=== PATIENT | female | born 1955 | race Caucasian/White ===

== ENCOUNTER 2020-01-20 09:32 | Outpatient (CLI) | payer MEDICARE, OTHER, SELFPAY ==
--- NOTE | 2020-01-20 09:45 | ECHO_ITS ---
Patient Info Name: Priyanka Brock Age: 64 years : 1955 Gender: Female Ht: 65 in Wt: 200 lbs BSA: 2.07 m2 HR: 93 bpm BP: 131 / 66 mmHg Heart Rhythm: Sinus Rhythm Technical Quality: Fair Exam Date: 01/20/2020 9:50 AM Exam Location: [facility] Patient Status: Outpatient Admit Date: 01/20/2020 Staff Ordering Physician: Bobby Mckenzie MD Assistant Merchandise Manager: Stephanie Hammond RDCS Attending Provider: Bobby Mckenzie MD Exam Type: CA echo doppler color flow Study Info Indications I10 - Essential (primary) hypertension Complete two-dimensional, color flow and Doppler transthoracic echocardiogram is performed. Strain analysis performed. History/Risk Factors Hypertension: Yes Dyslipidemia: Yes Congenital Heart Disease (CHD): No Peripheral Arterial Disease (PAD): No Myocardial Infarction ([place]): No Chronic Lung Disease: No Obesity: Yes Renal Disease: No Coronary Artery Disease (CAD) No Congestive Heart Failure (CHF): Hx CHF Cardiomyopathy/LV Systolic Dysfunction: No COPD: No Tobacco Use: Never Cerebrovascular Disease: TIA DVT Treatment: Warfarin Deep Vein Thrombosis (DVT): None Dialysis: None Frailty Scale (CSHA): 2: Well Cardiac Arrest: No Summary 1. Left ventricular chamber dimension is normal. 2. Left ventricular systolic function is normal, estimated at 55-60%. 3. There is mildly increased left ventricular wall thickness. 4. The left ventricular diastolic function is grade I diastolic dysfunction. 5. E/e' 9 is minimally elevated. 6. Left atrial chamber dimension is mildly enlarged. Left Ventricle E/e' 9 is minimally elevated. Left ventricular chamber dimension is normal. Left ventricular systolic function is normal, estimated at 55-60%. There is mildly increased left ventricular wall thickness. The left ventricular diastolic function is grade I diastolic dysfunction. Right Ventricle Right ventricular chamber dimension is not well visualized. Right ventricular systolic function is normal. Left Atria Left atrial chamber dimension is mildly enlarged. Right Atria Right atrial chamber dimension is normal. Aortic Valve The aortic valve is trileaflet. There is no aortic valve stenosis. There is no aortic valve regurgitation. Pulmonic Valve There is no pulmonic regurgitation. Mitral Valve There is no mitral valve stenosis. There is no mitral valve regurgitation. Tricuspid Valve There is no tricuspid valve regurgitation. Pericardium/Pleural There is no pericardial effusion. Inferior Vena Cava Normal inferior vena cava with >50% collapse upon inspiration consistent with normal right atrial pressure, 5 mmHg. Aorta The aortic root size at the sinus of Valsalva is normal. Left Ventricular Outflow Tract Name Value Normal LVOT 2D LVOT Diameter 1.2 cm LVOT Doppler LVOT Peak Velocity 131 cm/s LVOT Peak Gradient 7 mmHg LVOT Mean Gradient 3 mmHg LVOT VTI 28 cm
== END 2020-01-20 09:33 | disposition home or self-care (01) ==
PROVIDERS: PCP Internal Medicine; Visit Provider Internal Medicine
DX: I11.0 Hypertensive heart disease with heart failure (principal); I50.9 Heart failure, unspecified
CPT/HCPCS: 93306

== ENCOUNTER 2020-02-02 09:38 | Outpatient (CLI) | payer MEDICARE, OTHER, SELFPAY | END 2020-02-02 09:39 | disposition home or self-care (01) | PROVIDERS: PCP Internal Medicine; Visit Provider Internal Medicine | DX: J45.909 Unspecified asthma, uncomplicated (principal) | CPT/HCPCS: 94060; 94726; 94729; 95012 ==

== ENCOUNTER 2020-02-14 11:05 | Inpatient (IN) | payer MEDICARE, OTHER, SELFPAY ==
--- NOTE | ~2020-02-14 | US_ITS ---
EXAMINATION: US renal BI DATE: 02/15/2020 08:39 INDICATION: Elevated creatinine TECHNIQUE: Multiple ultrasound grayscale images of the kidneys were obtained. COMPARISON: None. FINDINGS: The right kidney measures 11.4 x 5.0 x 5.9 cm. The left kidney measures 9.8 x 4.7 x 4.7 cm. The kidne ys demonstrate normal echogenicity. There is no hydronephrosis in either kidney. No stones identifie d. The bladder is normal with bilateral ureteral jets on color Doppler.. IMPRESSION: 1. Normal kidneys without hydronephrosis. Reviewed, dictated and finalized at location A.
--- NOTE | ~2020-02-14 | XR_ITS ---
XR abdomen/kub 1V 02/14/2020 11:57 Indication: Constipation Procedure: KUB Comparison: No prior studies for comparison. Findings: Bowel gas pattern is nonobstructive. Moderate colonic fecal loading. Moderate lumbar spondy losis with levoscoliosis. Moderate colonic fecal loading. No definite urolithiasis. Impression: 1: Nonobstructive bowel gas pattern. Reviewed, dictated and finalized at location A. Impression: 1: Nonobstructive bowel gas pattern.
--- NOTE | 2020-02-14 11:36 | ED.NAVMDI ---
HPI - Nausea/Vomiting/Diarrhea General Chief complaint: Nausea/Vomiting/Diarrhea Stated complaint: Dehydrated doc sent over Time Seen by Provider: 02/14/20 11:30 Source: patient and RN notes reviewed Mode of arrival: ambulatory Limitations: no limitations History of Present Illness MD elicited complaint: vomiting Onset (ago): week(s) (2.5) Description of vomiting: bilious Associated nausea: Yes Associated abdominal pain: Yes Location of pain: diffuse Pain consistency: intermittent Severity: moderate Quality: cramping Exacerbating factors: eating Relieving factors: none Associated symptoms: denies other symptoms Related Data Home Medications Medication Instructions Recorded Confirmed albuterol sulfate [Ventolin HFA] 1 - 2 puff INHALATION QID PRN 02/14/20 02/14/20 atorvastatin 20 mg PO DAILY 02/14/20 02/14/20 clopidogrel 75 mg PO DAILY 02/14/20 02/14/20 montelukast 10 mg PO DAILY 02/14/20 02/14/20 oxycodone-acetaminophen 1 tablet PO QID 02/14/20 02/14/20 pantoprazole 40 mg PO DAILY 02/14/20 02/14/20 tizanidine 4 mg PO DAILY 02/14/20 02/14/20 torsemide 20 mg PO DAILY 02/14/20 02/14/20 valsartan-hydrochlorothiazide 1 tablet PO DAILY 02/14/20 02/14/20 Allergies Allergy/AdvReac Type Severity Reaction Status Date / Time No Known Allergies Allergy Verified 02/14/20 11:41 Review of Systems Constitutional: Constitutional: Reports chills and Denies fever(s) Eyes: Eyes: Reports no additional eye complaints ENT: Reports system reviewed and no additional complaints, except as documented Cardiovascular: Cardiovascular: Reports no additional cardiovascular complaints Respiratory: Respiratory: Reports no additional respiratory complaints Gastrointestinal: Gastrointestinal: Reports as per HPI and Reports constipation Musculoskeletal: Musculoskeletal: Reports no additional musculoskeletal complaints Integumentary/Breasts: Skin/Breast: Reports system reviewed and no additional complaints, except as docu Psychiatric: Psychiatric: Reports no additional psychiatric complaints Endocrine: Endocrine: Reports no additional endocrine complaints Hematologic/Lymphatic: Hematologic/Lymphatic: Reports no additional hematologic/lymphatic complaints Allergic/Immunologic: Allergic/Immunologic: Reports no additional allergic/immunologic complaints PMFSH Past Medical History Medical History (Updated 02/14/20 @ 12:52 by Domingo Kumar MD) Chronic back pain Chronic constipation Depression with anxiety Hyperlipidemia Hypertension Microscopic hematuria TIA (transient ischemic attack) Surgical History Surgical History (Updated 02/14/20 @ 12:52 by Domingo Kumar MD) History of hysterectomy for benign disease Social History Social History (Updated 02/14/20 @ 12:53 by Domingo Kumar MD) Smoking status: Never smoker Alcohol intake: current Substance use: never Living arrangements: with family Exam Const: General: healthy appearing and no acute distress Nutritional Appearance: well nourished and obese morbidly obese Orientation/consciousness: patient oriented x3 HENMT: Head: normal to inspection Face and sinus: normal facial exam Eyes: Cornea: corneas normal Pupils: Equal, round and reactive pupils present EOM: EOMs intact bilaterally Neck: Neck: normal visual inspection and no lymphadenopathy Resp: Effort & Inspection: normal respiratory effort Auscultation: clear to auscultation bilaterally Cardio: Rate: regular rate Rhythm: regular rhythm GI: Inspection: obesity GI Palp: Yes Soft to palpation, No Hepatomegaly present and No Splenomegaly present Auscultation: normal bowel sounds Back/Spine/Pelvis: Back: no CVA tenderness Cervical Spine: cervical ROM normal Thoracic/Lumbar Spine: thoraco-lumbar ROM normal Skin: General skin exam: normal color Neuro: General: patient oriented x3, moves all extremities, no meningeal signs and no focal motor deficits Speech: normal speech Gait exam (Neuro):
[2020-02-14 11:44] VITALS: BP 111/57; PULSE 73; RESP 73; TEMP 36.7; O2SAT 95
[2020-02-14 11:53] LABS: Add Urine Microscopic? NO; Appearance Urine Clear (Clear); Bilirubin Urine Negative (Negative); Blood Urine Negative (Negative); Color Urine Yellow (Yellow); Glucose Urine UA Negative (Negative); Ketones Urine Negative (Negative); Leukocyte Esterase Ur Negative LEU/UL (Negative); Nitrate Urine Negative (Negative); Protein Urine Negative (Negative); Urobilinogen Urine 0.2 mg/dL (0.2-1.0)
[2020-02-14 11:56] LABS: Basophils Absolute Auto 0.03 K/mm3 (0.00-0.10); Basophils Percent Auto 0.2 % (0.0-1.0); Eosinophils Absolute Auto 0.03 K/mm3 (0.02-0.50); Eosinophils Percent Auto 0.2 % (1.0-6.0); Hematocrit 41.6 % (35.0-49.0); Hemoglobin 14.9 g/dL (12.0-15.0); Immature Granulocyte Absolute 0.07 K/mm3 (0.00-0.00); Immature Granulocyte Percent A 0.5 % (0.0-0.0); Lymphocytes Absolute Auto 1.62 K/mm3 (1.10-4.50); Lymphocytes Percent Auto 11.5 % (18.0-42.0); Mean Corpuscular HGB Conc 35.8 g/dL (32.0-36.0); Mean Corpuscular Hemoglobin 30.7 pg (27.0-31.0); Mean Corpuscular Volume 85.8 fL (78.0-102.0); Mean Platelet Volume 8.8 fl (9.2-11.8); Monocytes Absolute Auto 1.35 K/mm3 (0.10-0.90); Monocytes Percent Auto 9.6 % (2.0-11.0); Neutrophils Absolute Auto 10.9 K/mm3 (1.7-7.2); Platelet Count Result 387 K/mm3 (150-420); Red Blood Count 4.85 M/mm3 (4.20-5.40); Red Cell Distribution Width 11.9 % (11.6-14.4)
[2020-02-14 12:11] LABS: Alanine Aminotransferase 29 U/L (14-59); Albumin Level 4.3 g/dL (3.4-5.0); Alkaline Phosphatase 110 U/L (46-116); Amylase 134 U/L (25-115); Anion Gap 14.5 mmol/L (7-16); Aspartate Amino Transferase 40 U/L (15-37); Bilirubin,Total 0.8 mg/dL (0.00-1.00); Blood Urea Nitrogen 80 mg/dL (7-18); Calcium 10.5 mg/dL (8.5-10.1); Carbon Dioxide 35 mmol/L (21-32); Chloride 79 mmol/L (98-108); Estimated Glomerular Filt Rate 11; Glucose 133 mg/dL (70-99); Lipase 381 U/L (73-393); Osmolality Calculated 288 mOsm/kg (285-295); Sodium 126 mmol/L (136-145); Total Protein 9.3 g/dL (6.4-8.2)
[2020-02-14 12:15] LABS: Potassium 2.5 mmol/L (3.5-5.1)
[2020-02-14] MEDS: SODIUM CHLORIDE 0.9% IV 1,000 ML 999 ML (12:21)
[2020-02-14] MEDS: POTASSIUM BICARBONATE 25 MEQ TABEF 50 MEQ PO ×2 (12:31→20:31)
[2020-02-14] MEDS: ONDANSETRON INJ 4 MG/2 ML VIAL IV PUSH ×2 (12:48→13:40)
[2020-02-14] MEDS: KCL 20 MEQ/SW 100 ML 100 ML 50 MEQ IVPB (12:48)
[2020-02-14] MEDS: SODIUM CHLORIDE 0.9% IV 1,000 ML 999 ML IV CONT (12:56)
[2020-02-14 13:03] VITALS: PULSE 78; RESP 16; O2SAT 95
--- NOTE | 2020-02-14 13:11 | ECG_ITS ---
Measurements Intervals [place] Rate: 67 P: 97 UT: 206 QRS: 61 QRSD: 109 T: 48 QT: 428 QTc: 453 Interpretive Statements SINUS RHYTHM WITH FIRST DEGREE AV BLOCK FREQUENT ATRIAL PREMATURE COMPLEXES BORDERLINE ST-T WAVE ABNORMALITY- ANTEROLATERAL LEADS ABNORMAL ECG Electronically Signed On 02-14-2020 14:06:16 CDT by Jeff Maya D.O.
[2020-02-14 13:19] VITALS: BP 140/67; PULSE 65; RESP 18; TEMP 36.6; O2SAT 96
[2020-02-14] MEDS: SODIUM CHLORIDE 0.9% IV 1,000 ML 100 ML IV CONT (13:40)
[2020-02-14 13:49] VITALS: BP 140/67; PULSE 64; RESP 20; TEMP 36.7; O2SAT 96; BMI 34.2
--- NOTE | 2020-02-14 14:09 | PC.NURSE ---
attempted to give pt fleets enema as ordered, pt refusing at this time. stated that i am not up for it right now will attempt again later.
--- NOTE | 2020-02-14 14:20 | PM.IMHP ---
H&P: HPI History of Present Illness Chief complaint: Dehydrated <FILOMENA Cyr - Last Filed: 02/14/20 15:01> Narrative: Priyanka Brock is a 64 year old female THAT PRESENTED TO THE ED WITH COMPLAINTS OF NAUSEA VOMITING. PATIENT HAS A PAST MEDICAL HISTORY CHRONIC BACK PAIN, CHRONIC CONSTIPATION, DEPRESSION AND ANXIETY, HYPERLIPIDEMIA, HYPERTENSION, MICROSCOPIC HEMATURIA AND TIA. ACCORDING TO PATIENT FOR THE LAST MONTH SHE HAVE EXPERIENCED EXCESSIVE HEARTBURN SHE HAS UNCONTROLLED BURPING AND HAS HEARTBURN WHETHER SHE IS SITTING OR LYING. SHE NOTED THAT LAST FRIDAY SHE VOMITED 6 TIMES. SHE DID INFORM HER PRIMARY CARE PHYSICIAN OF HER SEVERE HEARTBURN AND HE CHANGED HER OMEPRAZOLE TO PANTOPRAZOLE AND DOUBLED THE DOSE. SHE ALSO NOTED THAT APPROXIMATELY 1 MONTH AGO SHE HAD A SEVERE FALL BACKWARDS DOWN 5 FLIGHTS OF STAIRS. SHE DID GO TO DR. MOREL OFFICE AFTERWARDS AND IMAGING WAS COMPLETED NO FRACTURES NOTED. PATIENT ALSO NOTED THAT SHE HAS NOT HAD A BOWEL MOVEMENT FOR 2 WEEKS AND IS VERY FATIGUED SHE INFORMED ME THAT ON FRIDAY SHE VOMITED APPROXIMATELY 15 TIMES IN THE CONTENT WAS YELLOWISH IN COLOR. WHILE IN THE ER PATIENT'S POTASSIUM WAS 2.5 SHE RECEIVED A POTASSIUM 70 MEQ TOTAL. HER SODIUM LEVEL WAS ALSO LOW AT 126 HER WHITE COUNT WAS 14.0 HER CREATININE WAS 4.08 IN HER AMYLASE LEVEL WAS ELEVATED HER CRP WAS ALSO ELEVATED. PATIENT'S VITAL SIGNS 115/57,78, 16, 98.1,95% AIR. WHILE PATIENT WAS IN THE ER SHE RECEIVED SUPPLEMENT POTASSIUM AND 1 L BOLUS OF FLUIDS. HER EKG INDICATED SINUS RHYTHM WITH FREQUENT SUPRAVENTRICULAR PREMATURE COMPLEX. CK, TROPONIN AND RENAL ULTRASOUND AND ARE CURRENTLY PENDING. PATIENT IS BEING ADMITTED FOR DEHYDRATION, HYPOKALEMIA AND ACUTE KIDNEY INJURY . PATIENT DENIES SOB, CP, PALPITATION, EXTREMITY NUMBNESS, LIGHTHEADNESS, DIZZINESS, , DIARRHEA, CHILLS OR FEVER. <FILOMENA Cyr - Last Filed: 02/14/20 15:01> Review of Systems Constitutional: Constitutional: Reports fatigue, Denies fever(s), Reports lethargy, Reports poor appetite and Reports weakness <FILOMENA Cyr - Last Filed: 02/14/20 15:01> Cardiovascular: Cardiovascular: Reports no additional cardiovascular complaints, Denies chest pain and Denies dyspnea <FILOMENA Cyr - Last Filed: 02/14/20 15:01> Respiratory: Respiratory: Reports no additional respiratory complaints, Denies chest congestion, Denies dyspnea and Denies dyspnea on exertion <[facility] - Last Filed: 02/14/20 15:01> Gastrointestinal: Gastrointestinal: Denies abdominal pain, Reports belching, Denies melena, Denies hematochezia, Denies coffee ground emesis, Reports heartburn, Reports nausea, Reports vomiting and Denies hematemesis <Orlando Lemos [facility] Last Filed: 02/14/20 15:01> Genitourinary: Genitourinary: Reports no additional female genitourinary complaints, Denies flank pain, Denies urinary incontinence, Denies urinary hesitancy and Denies urinary urgency <[facility] Last Filed: 02/14/20 15:01> Musculoskeletal: Musculoskeletal: Reports back pain ( CHRONIC) <Orlando Lemos [facility] [employer] Last Filed: 02/14/20 15:01> Integumentary/Breasts: Skin/Breast: Reports system reviewed and no additional complaints, except as docu <[facility] Last Filed: 02/14/20 15:01> Neurologic: Reports system reviewed and no additional complaints, except as documented, Denies Neuro-related abnormal movements, Denies Abnormal speech present, Denies abnormal gait, Denies vertigo, Denies dizziness, Denies syncope, Denies frequent falls, Denies headache(s), Denies numbness and Denies seizure-like activity <[facility] Last Filed: 02/14/20 15:01> Psychiatric: Psychiatric: Reports no additional psychiatric complaints, Denies anxiety and Denies confusion <[facility] [employer] Last Filed: 02/14/20 15:01> Endocrine: Endocrine: Reports fatigue and Denies polyuria <[facility] [employer] Last Filed: 0
[2020-02-14 14:54] LABS: Troponin I < 0.02 ng/mL (0.00-0.056)
[2020-02-14 14:55] LABS: Creatine Kinase 396 U/L (26-192); Potassium 2.9 mmol/L (3.5-5.1)
[2020-02-14 16:00] VITALS: BP 107/64; PULSE 74; RESP 18; TEMP 36.3; O2SAT 92
--- NOTE | 2020-02-14 16:18 | PC.NURSE ---
Patient awake and pleasant. C/O lower back pain that runs along sciatic nerve in LLE. Assisted to bathroom. Ambulated with steady gait. Patient resting in bed, watching TV, with call light and belongings within reach.
[2020-02-14] MEDS: ENOXAPARIN 30 MG/0.3 ML SYRINGE SUB-Q (16:46)
[2020-02-14 20:00] VITALS: BP 111/53; PULSE 68; RESP 18; TEMP 36.6; O2SAT 95
[2020-02-14 20:10] LABS: Potassium 2.1 mmol/L (3.5-5.1)
[2020-02-14] MEDS: TRAZODONE HCL 50 MG TABLET PO ×2 (20:30→20:32)
[2020-02-14] MEDS: SENNA/DOCUSATE SODIUM TABLET 1 TAB PO (20:37)
[2020-02-15] VITALS: BP 126/60; PULSE 70; RESP 18; TEMP 36.4; O2SAT 95
[2020-02-15] MEDS: SODIUM CHLORIDE 0.9% IV 1,000 ML 100 ML IV CONT (00:03)
[2020-02-15 03:59] VITALS: BP 127/63; PULSE 70; RESP 18; TEMP 36.3; O2SAT 95
[2020-02-15 05:23] LABS: Hematocrit 36.9 % (35.0-49.0); Mean Corpuscular HGB Conc 35.2 g/dL (32.0-36.0); Mean Corpuscular Hemoglobin 30.9 pg (27.0-31.0); Mean Corpuscular Volume 87.6 fL (78.0-102.0); Platelet Count Result 308 K/mm3 (150-420); Red Blood Count 4.21 M/mm3 (4.20-5.40); Red Cell Distribution Width 12.1 % (11.6-14.4)
[2020-02-15 05:39] LABS: Alanine Aminotransferase 24 U/L (14-59); Albumin Level 3.4 g/dL (3.4-5.0); Alkaline Phosphatase 85 U/L (46-116); Anion Gap 8.3 mmol/L (7-16); Aspartate Amino Transferase 32 U/L (15-37); Bilirubin,Total 0.6 mg/dL (0.00-1.00); Blood Urea Nitrogen 62 mg/dL (7-18); Calcium 9.2 mg/dL (8.5-10.1); Carbon Dioxide 37 mmol/L (21-32); Chloride 92 mmol/L (98-108); Creatine Kinase 281 U/L (26-192); Estimated CRCL calculation 25 ml/min; Estimated Glomerular Filt Rate 21; Glucose 102 mg/dL (70-99); Osmolality Calculated 295 mOsm/kg (285-295); Potassium 3.3 mmol/L (3.5-5.1); Sodium 134 mmol/L (136-145); Total Protein 7.5 g/dL (6.4-8.2)
[2020-02-15] MEDS: PANTOPRAZOLE 40 MG TABLET PO (05:53)
[2020-02-15 07:42] VITALS: BP 93/54; PULSE 65; RESP 18; TEMP 36.9; O2SAT 95
--- NOTE | 2020-02-15 07:49 | PC.NURSE ---
AM creatinine 2.34, fluids infusing, no n/v, voiding without difficulty
[2020-02-15] MEDS: MAGNESIUM CITRATE 300 ML BTL 150 ML PO (09:21)
[2020-02-15] MEDS: POTASSIUM CHLORIDE 20 MEQ PACKET (FOR LIQUID) 40 MEQ PO (09:22)
[2020-02-15] MEDS: FLUTICASONE PROPIONATE 0.05% NA SPR 16 GM BTL (*BKC) 2 SPRAY NASAL (09:23)
[2020-02-15] MEDS: VALSARTAN 80 MG TABLET 320 MG PO (09:24)
[2020-02-15] MEDS: ASCORBIC ACID 500 MG TABLET PO (09:26)
[2020-02-15] MEDS: TIZANIDINE HCL 2 MG TABLET 4 MG PO (09:26)
[2020-02-15] MEDS: DOCUSATE SODIUM 100 MG CAPSULE PO (09:26)
[2020-02-15] MEDS: METOPROLOL SUCCINATE EXT REL 50 MG TABCR PO (09:27)
[2020-02-15] MEDS: MONTELUKAST SODIUM 10 MG TABLET PO (09:27)
[2020-02-15] MEDS: hydroCHLOROthiazide 12.5 MG CAPSULE PO (09:28)
[2020-02-15] MEDS: TORSEMIDE 20 MG TABLET PO (09:28)
[2020-02-15] MEDS: MULTIVITAMINS THERAPEUTIC TAB (*BKC) 1 TABLET PO (09:30)
[2020-02-15] MEDS: CLOPIDOGREL BISULFATE 75 MG TABLET PO (09:30)
--- NOTE | 2020-02-15 09:46 | PC.NURSE ---
voiding well, no BM at this time
[2020-02-15 11:37] VITALS: BP 115/67; PULSE 75; RESP 18; TEMP 36.6; O2SAT 95
--- NOTE | 2020-02-15 12:51 | P.PNIM_ITS ---
Progress Note: A&P Assessment and Plan (1) Chronic back pain: Code(s): M54.9 - Dorsalgia, unspecified; G89.29 - Other chronic pain <Jasperkarlie LalitaFILOMENA Coleman - Last Filed: 02/15/20 12:58> Status: Acute <Orlando LemosFILOMENA - Last Filed: 02/15/20 12:58> Assessment and Plan: * PATIENT WITH CHRONIC BACK PAIN, FOLLOWED BY PAIN MANAGEMENT * FOR NOW WE WILL CONTINUE PERCOCET * WILL ADJUST MEDICATION NEEDED <Jasperkarlie LalitaFILOMENA Coleman - Last Filed: 02/15/20 12:58> (2) Depression with anxiety: Code(s): F41.8 - Other specified anxiety disorders <Orlando LalitaFILOMENA Coleman - Last Filed: 02/15/20 12:58> Status: Acute <Jasperkarlie LalitaFILOMENA Coleman - Last Filed: 02/15/20 12:58> Assessment and Plan: * CONTINUE CYMBALTA <Jasperkarlie LalitaFILOMENA Coleman - Last Filed: 02/15/20 12:58> (3) Chronic constipation: Code(s): K59.09 - Other constipation <Orlando LalitaFILOMENA Coleman - Last Filed: 02/15/20 12:58> Status: Acute <Jsaperkarlie LalitaIFLOMENA Coleman - Last Filed: 02/15/20 12:58> Assessment and Plan: * POSSIBLY SECONDARY TO CHRONIC NARCOTIC USE * IMAGING INDICATED Bowel gas pattern is nonobstructive. Moderate colonic fecal loading. * patient refused FLEET ENEMA but has P.R.N. SUPPOSITORIES AND SCHEDULED STOOL SOFTENERS WITH LAXATIVES THROUGHOUT THE DAY. she also received Mag citrate today * HER LINZESS IS CURRENTLY ON HOLD <FILOMENA Cyr - Last Filed: 02/15/20 12:58> (4) Hyperlipidemia: Code(s): E78.5 - Hyperlipidemia, unspecified <Orlando LalitaFILOMENA Coleman - Last Filed: 02/15/20 12:58> Status: Acute <FILOMENA Cyr - Last Filed: 02/15/20 12:58> Assessment and Plan: * CONTINUE STATINS <Orlando Lemos SOCIAL WELFARE ADMINISTRATORNadege - Last Filed: 02/15/20 12:58> (5) Hypertension: Code(s): I10 - Essential (primary) hypertension <Orlando Lemos SOCIAL WELFARE ADMINISTRATORArlodoNate - Last Filed: 02/15/20 12:58> Status: Acute <Orlando Lemos BESSYNate - Last Filed: 02/15/20 12:58> Assessment and Plan: * SOFT DUE TO DEHYDRATION, slight improvement * PATIENT WILL CONTINUE VALSARTAN AND METOPROLOL TOMORROW MORNING IF BLOOD PRESSURE HAS IMPROVED * VITAL SIGNS IS ORDERED * ORTHOSTATICS BLOOD PRESSURES review * WILL ADJUST MEDICATION NEEDED * PATIENT'S DIURETICS ON HOLD DUE TO DEHYDRATION * <Orlando LemosNIMAAroldoNate - Last Filed: 02/15/20 12:58> (6) Dehydration: Code(s): E86.0 - Dehydration <Orlando LemosNIMAAroldoNate - Last Filed: 02/15/20 12:58> Status: Acute <Orlando Lemos SOCIAL WELFARE ADMINISTRATORNadege - Last Filed: 02/15/20 12:58> Assessment and Plan: * SECONDARY TO NAUSEA/ VOMITING * EVIDENCE OF AND BALANCE ELECTROLYTES, FATIGUE. patient electrolytes improving * CONTINUE IV FLUIDS * REPEAT CMP IN A.M. <Orlando LemosNIMAAroldoNate - Last Filed: 02/15/20 12:58> (7) Acute hyponatremia: Code(s): E87.1 - Hypo-osmolality and hyponatremia <Orlando LemosFILOMENA - Last Filed: 02/15/20 12:58> Status: Acute <Orlando Lemos FILOMENA - Last Filed: 02/15/20 12:58> Assessment and Plan: * SECONDARY TO DEHYDRATION * CONTINUE TO HYDRATE PATIENT VIA IV * REPEAT BMP IN A.M. <Orlando LemosNIMAAroldoNate - Last Filed: 02/15/20 12:58> (8) Hypokalemia: Code(s): E87.6 - Hypokalemia <Orlando LemosFILOMENA - Last Filed: 02/15/20 12:58> Status: Acute <Orlando Lemos, SOCIAL WELFARE ADMINISTRATOR-C - Last Filed: 02/15/20 12:58> Assessment and Plan: * POSSIBLY SECONDARY TO ACUTE KIDNEY INJURY SARINA
--- NOTE | 2020-02-15 12:51 | PM.IMPN ---
Progress Note: A&P Assessment and Plan (1) Chronic back pain: Code(s): M54.9 - Dorsalgia, unspecified; G89.29 - Other chronic pain <FILOMENA Cyr - Last Filed: 02/15/20 12:58> Status: Acute <Orlando LalitaFILOMENA Coleman - Last Filed: 02/15/20 12:58> Assessment and Plan: PATIENT WITH CHRONIC BACK PAIN, FOLLOWED BY PAIN MANAGEMENT FOR NOW WE WILL CONTINUE PERCOCET WILL ADJUST MEDICATION NEEDED <FILOMENA Cyr - Last Filed: 02/15/20 12:58> (2) Depression with anxiety: Code(s): F41.8 - Other specified anxiety disorders <FILOMENA Cyr - Last Filed: 02/15/20 12:58> Status: Acute <FILOMENA Cyr - Last Filed: 02/15/20 12:58> Assessment and Plan: CONTINUE CYMBALTA <FILOMENA Cyr - Last Filed: 02/15/20 12:58> (3) Chronic constipation: Code(s): K59.09 - Other constipation <FILOMENA Cyr - Last Filed: 02/15/20 12:58> Status: Acute <FILOMENA Cyr - Last Filed: 02/15/20 12:58> Assessment and Plan: POSSIBLY SECONDARY TO CHRONIC NARCOTIC USE IMAGING INDICATED Bowel gas pattern is nonobstructive. Moderate colonic fecal loading. patient refused FLEET ENEMA but has P.R.N. SUPPOSITORIES AND SCHEDULED STOOL SOFTENERS WITH LAXATIVES THROUGHOUT THE DAY. she also received Mag citrate today HER LINZESS IS CURRENTLY ON HOLD <FILOMENA Cyr - Last Filed: 02/15/20 12:58> (4) Hyperlipidemia: Code(s): E78.5 - Hyperlipidemia, unspecified <FILOMENA Cyr - Last Filed: 02/15/20 12:58> Status: Acute <FILOMENA Cyr - Last Filed: 02/15/20 12:58> Assessment and Plan: CONTINUE STATINS <FILOMENA Cyr - Last Filed: 02/15/20 12:58> (5) Hypertension: Code(s): I10 - Essential (primary) hypertension <Orlando Lemos FILOMENA - Last Filed: 02/15/20 12:58> Status: Acute <Orlando Lemos FILOMENA - Last Filed: 02/15/20 12:58> Assessment and Plan: SOFT DUE TO DEHYDRATION, slight improvement PATIENT WILL CONTINUE VALSARTAN AND METOPROLOL TOMORROW MORNING IF BLOOD PRESSURE HAS IMPROVED VITAL SIGNS IS ORDERED ORTHOSTATICS BLOOD PRESSURES review WILL ADJUST MEDICATION NEEDED PATIENT'S DIURETICS ON HOLD DUE TO DEHYDRATION <Orlando Lemos HORTICULTURAL SPECIALTY GROWER FIELDAroldoNate - Last Filed: 02/15/20 12:58> (6) Dehydration: Code(s): E86.0 - Dehydration <Orlando Lemos BESSYNate - Last Filed: 02/15/20 12:58> Status: Acute <Orlando Lemos FILOMENA - Last Filed: 02/15/20 12:58> Assessment and Plan: SECONDARY TO NAUSEA/ VOMITING EVIDENCE OF AND BALANCE ELECTROLYTES, FATIGUE. patient electrolytes improving CONTINUE IV FLUIDS REPEAT CMP IN A.M. <Orlando Lemos BESSYNate - Last Filed: 02/15/20 12:58> (7) Acute hyponatremia: Code(s): E87.1 - Hypo-osmolality and hyponatremia <Orlando Lemos FILOMENA - Last Filed: 02/15/20 12:58> Status: Acute <Orlando Lemos FILOMENA - Last Filed: 02/15/20 12:58> Assessment and Plan: SECONDARY TO DEHYDRATION CONTINUE TO HYDRATE PATIENT VIA IV REPEAT BMP IN A.M. <Orlando Lemos FILOMENA - Last Filed: 02/15/20 12:58> (8) Hypokalemia: Code(s): E87.6 - Hypokalemia <Orlando Lemos BESSYNate - Last Filed: 02/15/20 12:58> Status: Acute <Orlando Lemos [employer]ICULT[employer] SPECIALTY GR[employer] FIELDAroldoNate - Last Filed: 02/15/20 12:58> Assessment and Plan: POSSIBLY SECONDARY TO ACUTE KIDNEY INJURY VERSUS USE OF DIURETICS PATIENT'S POTASSIUM LEVEL AT 2.5 on admission currently 3.3 continue supplements EKG INDICATES SINUS RHYTHM WITH FREQUENT SUPRAVENTRICULAR PREMATURE COMPLEX TROPONINS negative <FILOMENA Cyr - Last Filed: 02/15/20 12:58> (9) Acute kidney injury: Code(s): N17.9 - Acute kidney failure, unspecified <Kirsten Cyr
--- NOTE | 2020-02-15 13:16 | PC.NURSE ---
Up in [place] walking, no BM at this time, did get all of magnesium citrate down this am
--- NOTE | 2020-02-15 14:49 | PC.NURSE ---
Voiding well, still no BM
--- NOTE | 2020-02-15 15:45 | PHAR ---
02/14/20 - SPOKE W/[facility]. SAID PT TAKES OXYCONE/APAP-10/325MG 1 TAB PO Q4-6H PRN, MAX 5.5 TABS/DAY, JUST FILLED 02/06/20. INFORMED SERAFIN MURPHY AND DR. MAYBERRY. TLS
[2020-02-15 16:00] VITALS: BP 134/47; PULSE 82; PULSE 93; RESP 16; TEMP 37.3; O2SAT 92
[2020-02-15] MEDS: ENOXAPARIN 30 MG/0.3 ML SYRINGE SUB-Q (16:52)
--- NOTE | 2020-02-15 17:10 | PM.EVENT ---
Event Note Event Note Event Note: For this patient encounter, I reviewed with Orlando Lemos the documentation, treatment plan, and medical decision making; and I had [id number]-shkn time with this patient. Dehydration and hypokalemia secondary to vomiting. GI symptoms resolved, kidney function and K improving.
[2020-02-15 20:00] VITALS: BP 129/64; PULSE 67; PULSE 70; RESP 18; TEMP 36.9; O2SAT 97
[2020-02-15] MEDS: SENNA/DOCUSATE SODIUM TABLET 1 TAB PO (21:18)
[2020-02-15] MEDS: TRAZODONE HCL 50 MG TABLET PO (21:21)
[2020-02-16] VITALS (11 sets, daily range): BP systolic 104–157; BP diastolic 54–86; PULSE 66–93; RESP 16–22; TEMP 36.4–37; O2SAT 93–100
--- NOTE | 2020-02-16 05:06 | PC.NURSE ---
Echocardiograph Technician observed patient heart rate going in the 140s on telemetry, scientific writer in to check on the patient and found her sitting on the side of the bed. She stated that she was woke up by a feeling of burning in her mid chest up into her throat, she describes it as feeling like acid reflux. She is also stating that she feels nauseous at this time. Vital signs were obtained and charge nurse notified.
[2020-02-16] MEDS: ONDANSETRON INJ 4 MG/2 ML VIAL IV PUSH ×2 (05:15→21:55)
[2020-02-16] MEDS: MAG HYDROX/AL HYDROX/SIMETH 30 ML UDC PO (05:16)
[2020-02-16] MEDS: PANTOPRAZOLE 40 MG TABLET PO ×2 (05:16→21:52)
--- NOTE | 2020-02-16 05:29 | ECG_ITS ---
Measurements Intervals [place] Rate: 81 P: -1 WA: 157 QRS: 32 QRSD: 104 T: -5 QT: 387 QTc: 450 Interpretive Statements SINUS RHYTHM DELAYED PRECORDIAL R/S TRANSITION INFERIOR INFARCT, AGE INDETERMINATE BASELINE WANDER- V4 ABNORMAL ECG Electronically Signed On 02-16-2020 6:59:05 CDT by Jeff Maya D.O.
--- NOTE | 2020-02-16 05:31 | PC.NURSE ---
Per charge nurse, bond underwriter called Dr. Caldwell to discuss the patients condition. Dr. Caldwell informed of patient vitals signs and that she received PRN medication and that she states that the medication did decrease the burning sensation. Dr. caldwell stated that he would put orders in for labs and EKG.
--- NOTE | 2020-02-16 05:40 | PC.NURSE ---
Unable to obtain accurate I and O due to patient removing hats from toilet. Dr. Duenas up to see the patient.
--- NOTE | 2020-02-16 05:55 | PM.EVENT ---
Event Note Event Note Event Note: Pt awoke around 5 AM with substernal burning, acid taste in her mouth and nausea. Shortly thereafter she felt her heart racing for about a minute followed by having her previosly mild frontal headache begin to pound and be associated with photophobia. Since her severe GERD symptoms started about a month ago everytime she has bouts of GERD, nausea and vomiting she will experience similar brief episodes of palpitations. Her blood pressure has been followed by a director geothermal operations for years. She has no hx of previous palpitations. No hx of CAD. o) Telemetry strip taken at the same time pt was experiencing palpitations revealed a regular, narrow complex tachycardia ~ 160. Nurse states it lasted about a minute. Window shades are up; pt. is squinting. Appears to be uncomfortable. PERRL. Lung sounds are full and clear. Cor: RR and R, no g/m. Rate: 81 Rhythm: NSR QRS duration:104 SC interval: 157 QTc: 424 [place]: 32 ST/T changes: none Q waves II, AVF and III with taller R waves in V1 and V2 not seen on comparison 02/13. A/ Brief episode of PSVT assoc. with new onset of GERD symptoms, similar scenarios over the past month. New Q waves inferior leads c/w inferior M.I. P/ Await troponin. Continue telemetry. Consult pt's director geothermal operations. Consider echo.
[2020-02-16 06:13] LABS: Anion Gap 6.8 mmol/L (7-16); Blood Urea Nitrogen 38 mg/dL (7-18); Carbon Dioxide 37 mmol/L (21-32); Chloride 91 mmol/L (98-108); Estimated CRCL calculation 42 ml/min; Estimated Glomerular Filt Rate 38; Glucose 111 mg/dL (70-99); Magnesium 1.9 mg/dL (1.8-2.4); Osmolality Calculated 284 mOsm/kg (285-295); Potassium 2.8 mmol/L (3.5-5.1); Sodium 132 mmol/L (136-145); Troponin I < 0.02 ng/mL (0.00-0.056)
[2020-02-16] MEDS: ASPIRIN 81 MG CHEWABLE TABLET 324 MG PO (06:25)
[2020-02-16] MEDS: METOCLOPRAMIDE HCL INJ 10 MG/2 ML VIAL IV PUSH (06:26)
--- NOTE | 2020-02-16 06:29 | PC.NURSE ---
2117 Dr. Duenas here to see patient.
[2020-02-16] MEDS: POTASSIUM CHLORIDE 20 MEQ PACKET (FOR LIQUID) 40 MEQ PO (09:00)
[2020-02-16] MEDS: KCL 20 MEQ/SW 100 ML 100 ML 50 MEQ IVPB (09:09)
[2020-02-16] MEDS: SODIUM CHLORIDE 0.9% IV 500 ML 250 ML IV CONT (09:09)
[2020-02-16] MEDS: FLUTICASONE PROPIONATE 0.05% NA SPR 16 GM BTL (*BKC) 2 SPRAY NASAL (09:10)
[2020-02-16] MEDS: VALSARTAN 80 MG TABLET 320 MG PO (09:11)
[2020-02-16] MEDS: DOCUSATE SODIUM 100 MG CAPSULE PO (09:12)
[2020-02-16] MEDS: MULTIVITAMINS THERAPEUTIC TAB (*BKC) 1 TABLET PO (09:12)
[2020-02-16] MEDS: MONTELUKAST SODIUM 10 MG TABLET PO (09:12)
[2020-02-16] MEDS: ATORVASTATIN 10 MG TABLET 20 MG PO (09:13)
[2020-02-16] MEDS: ASCORBIC ACID 500 MG TABLET PO (09:13)
[2020-02-16] MEDS: METOPROLOL SUCCINATE EXT REL 50 MG TABCR PO (09:14)
[2020-02-16] MEDS: TORSEMIDE 20 MG TABLET PO (09:14)
[2020-02-16] MEDS: TIZANIDINE HCL 2 MG TABLET 4 MG PO (09:15)
[2020-02-16] MEDS: hydroCHLOROthiazide 12.5 MG CAPSULE PO (09:16)
[2020-02-16] MEDS: CLOPIDOGREL BISULFATE 75 MG TABLET PO (09:16)
--- NOTE | 2020-02-16 14:30 | P.PNIM_ITS ---
Progress Note: A&P Assessment and Plan (1) Chronic back pain: Code(s): M54.9 - Dorsalgia, unspecified; G89.29 - Other chronic pain Status: Acute Assessment and Plan: * PATIENT WITH CHRONIC BACK PAIN, FOLLOWED BY PAIN MANAGEMENT * FOR NOW WE WILL CONTINUE PERCOCET * WILL ADJUST MEDICATION NEEDED (2) Depression with anxiety: Code(s): F41.8 - Other specified anxiety disorders Status: Acute Assessment and Plan: * PATIENT NOTED THAT SHE HAS NOT TAKING CYMBALTA FOR QUITE SOME TIME NOW AND IT CAUSED TO have nausea and vomiting in THE PAST . I will DISCONTINUE USE (3) Chronic constipation: Code(s): K59.09 - Other constipation Status: Acute Assessment and Plan: * POSSIBLY SECONDARY TO CHRONIC NARCOTIC USE * IMAGING INDICATED Bowel gas pattern is nonobstructive. Moderate colonic fecal loading. * PATIENT HAD LARGE BOWEL MOVEMENT WITH THE USE OF MAG CITRATE * HER LINZESS IS CURRENTLY ON HOLD (4) Hyperlipidemia: Code(s): E78.5 - Hyperlipidemia, unspecified Status: Acute Assessment and Plan: * CONTINUE STATINS (5) Hypertension: Code(s): I10 - Essential (primary) hypertension Status: Acute Assessment and Plan: * SOFT DUE TO DEHYDRATION, slight improvement * contniue VALSARTAN AND METOPROLOL * VITAL SIGNS IS ORDERED * ORTHOSTATICS BLOOD PRESSURES review * WILL ADJUST MEDICATION NEEDED * patient will discontinue the use of hydrochlorothiazide and torsemide on discharge due to her hypokalemia she will start spironolactone instead * (6) Dehydration: Code(s): E86.0 - Dehydration Status: Acute Assessment and Plan: * resolved * SECONDARY TO NAUSEA/ VOMITING * EVIDENCE OF AND BALANCE ELECTROLYTES, FATIGUE. patient electrolytes i mproving * CONTINUE IV FLUIDS * REPEAT CMP IN A.M. (7) Acute hyponatremia: Code(s): E87.1 - Hypo-osmolality and hyponatremia Status: Acute Assessment and Plan: * SECONDARY TO DEHYDRATION * CONTINUE TO HYDRATE PATIENT VIA IV * REPEAT BMP IN A.M. (8) Hypokalemia: Code(s): E87.6 - Hypokalemia Status: Acute Assessment and Plan: * POSSIBLY SECONDARY TO ACUTE KIDNEY INJURY VERSUS USE OF DIURETICS * PATIENT'S POTASSIUM LEVEL AT 2.5 on admission currently 2.8 * continue supplements * patient with a episode of SVT with a heart rate of 140 over night * TROPONINS negative (9) Acute kidney injury: Code(s): N17.9 - Acute kidney failure, unspecified Status: Acute Assessment and Plan: * POSSIBLY SECONDARY TO DEHYDRATION VERSUS MEDICATION SUCH DIURETICS * EVIDENCE BY ELEVATED CREATININE 4.08, creatinine level improving * BASELINE CREATININE APPEARS TO BE 0.92 BASED OFF LABS FOR 01/14/2020 * encourage p.o. fluid intake * WILL RECHECK RENAL FUNCTION IN THE A.M. * IF PATIENT HAS NOT IMPROVED I WILL CONSULT [facility] * CK elevated 396 currently to 81 * RENAL ULTRASOUND indicates normal kidney with out hydro nephrosis * AVOID NEPHROTOXINS AGENTS * ALL MEDICATION RENAL DOSED (10) SVT (supraventricular tachycardia): Code(s): I47.1 - Supraventricular tachycardia Status: Acute Assessment and Plan: * spoke with Dr. Guadarrama's car repairer pullman's office. patient will discharge home with a event monitor. * torsemide and hydrochlorothiazide will be DC * patient will discharge on spironolactone * will repeat potassium in 2 days and sent to patient's primary care physician
--- NOTE | 2020-02-16 14:30 | PM.IMPN ---
Progress Note: A&P Assessment and Plan (1) Chronic back pain: Code(s): M54.9 - Dorsalgia, unspecified; G89.29 - Other chronic pain Status: Acute Assessment and Plan: PATIENT WITH CHRONIC BACK PAIN, FOLLOWED BY PAIN MANAGEMENT FOR NOW WE WILL CONTINUE PERCOCET WILL ADJUST MEDICATION NEEDED (2) Depression with anxiety: Code(s): F41.8 - Other specified anxiety disorders Status: Acute Assessment and Plan: PATIENT NOTED THAT SHE HAS NOT TAKING CYMBALTA FOR QUITE SOME TIME NOW AND IT CAUSED TO have nausea and vomiting in THE PAST . I will DISCONTINUE USE (3) Chronic constipation: Code(s): K59.09 - Other constipation Status: Acute Assessment and Plan: POSSIBLY SECONDARY TO CHRONIC NARCOTIC USE IMAGING INDICATED Bowel gas pattern is nonobstructive. Moderate colonic fecal loading. PATIENT HAD LARGE BOWEL MOVEMENT WITH THE USE OF MAG CITRATE HER LINZESS IS CURRENTLY ON HOLD (4) Hyperlipidemia: Code(s): E78.5 - Hyperlipidemia, unspecified Status: Acute Assessment and Plan: CONTINUE STATINS (5) Hypertension: Code(s): I10 - Essential (primary) hypertension Status: Acute Assessment and Plan: SOFT DUE TO DEHYDRATION, slight improvement contniue VALSARTAN AND METOPROLOL VITAL SIGNS IS ORDERED ORTHOSTATICS BLOOD PRESSURES review WILL ADJUST MEDICATION NEEDED patient will discontinue the use of hydrochlorothiazide and torsemide on discharge due to her hypokalemia she will start spironolactone instead (6) Dehydration: Code(s): E86.0 - Dehydration Status: Acute Assessment and Plan: resolved SECONDARY TO NAUSEA/ VOMITING EVIDENCE OF AND BALANCE ELECTROLYTES, FATIGUE. patient electrolytes improving CONTINUE IV FLUIDS REPEAT CMP IN A.M. (7) Acute hyponatremia: Code(s): E87.1 - Hypo-osmolality and hyponatremia Status: Acute Assessment and Plan: SECONDARY TO DEHYDRATION CONTINUE TO HYDRATE PATIENT VIA IV REPEAT BMP IN A.M. (8) Hypokalemia: Code(s): E87.6 - Hypokalemia Status: Acute Assessment and Plan: POSSIBLY SECONDARY TO ACUTE KIDNEY INJURY VERSUS USE OF DIURETICS PATIENT'S POTASSIUM LEVEL AT 2.5 on admission currently 2.8 continue supplements patient with a episode of SVT with a heart rate of 140 over night TROPONINS negative (9) Acute kidney injury: Code(s): N17.9 - Acute kidney failure, unspecified Status: Acute Assessment and Plan: POSSIBLY SECONDARY TO DEHYDRATION VERSUS MEDICATION SUCH DIURETICS EVIDENCE BY ELEVATED CREATININE 4.08, creatinine level improving BASELINE CREATININE APPEARS TO BE 0.92 BASED OFF LABS FOR 01/14/2020 encourage p.o. fluid intake WILL RECHECK RENAL FUNCTION IN THE A.M. IF PATIENT HAS NOT IMPROVED I WILL CONSULT NEPHROLOGY AT [facility] CK elevated 396 currently to 81 RENAL ULTRASOUND indicates normal kidney with out hydro nephrosis AVOID NEPHROTOXINS AGENTS ALL MEDICATION RENAL DOSED (10) SVT (supraventricular tachycardia): Code(s): I47.1 - Supraventricular tachycardia Status: Acute Assessment and Plan: spoke with Dr. Guadarrama's preschool associate teacher's office. patient will discharge home with a event monitor. torsemide and hydrochlorothiazide will be DC patient will discharge on spironolactone will repeat potassium in 2 days and sent to patient's primary care physician repeat potassium pending will continue telemetry overnight Subjective Date/time seen: 02/16/20 14:30 apparently patient had a episode over night where she had a run of SVT and elevated heart rate of 140 at approximately 5:55 a.m.. she also noted at that time she felt nauseated due to what she thinks is acid reflux. EKG was completed with troponin. At this time patient is not complaining of nausea vomiting. I have contact her card
[2020-02-16 15:15] LABS: Potassium 3.3 mmol/L (3.5-5.1)
[2020-02-16 15:19] LABS: Troponin I < 0.02 ng/mL (0.00-0.056)
[2020-02-16] MEDS: ENOXAPARIN 30 MG/0.3 ML SYRINGE SUB-Q (16:37)
--- NOTE | 2020-02-16 19:53 | PC.NURSE ---
pt walking the bailey, denies any needs
[2020-02-16] MEDS: SENNA/DOCUSATE SODIUM TABLET 1 TAB PO (21:52)
[2020-02-16] MEDS: TRAZODONE HCL 50 MG TABLET PO (21:52)
--- NOTE | 2020-02-17 01:58 | PC.NURSE ---
pt sleeping, respirations even and regular, no evidence of distress noted at this time
[2020-02-17 03:06] VITALS: BP 153/88; PULSE 83; RESP 18; TEMP 36.7; O2SAT 95
[2020-02-17 03:45] VITALS: PULSE 90
[2020-02-17 05:57] LABS: Hematocrit 37.4 % (35.0-49.0); Hemoglobin 12.7 g/dL (12.0-15.0); Mean Corpuscular Hemoglobin 30.4 pg (27.0-31.0); Mean Corpuscular Volume 89.5 fL (78.0-102.0); Mean Platelet Volume 9.1 fl (9.2-11.8); Platelet Count Result 341 K/mm3 (150-420); Red Blood Count 4.18 M/mm3 (4.20-5.40); Red Cell Distribution Width 12.3 % (11.6-14.4); White Blood Count 9.3 K/mm3 (4.8-10.8)
[2020-02-17] MEDS: ONDANSETRON INJ 4 MG/2 ML VIAL IV PUSH (06:07)
[2020-02-17 06:14] LABS: Alanine Aminotransferase 32 U/L (14-59); Albumin Level 3.7 g/dL (3.4-5.0); Alkaline Phosphatase 89 U/L (46-116); Anion Gap 7.4 mmol/L (7-16); Aspartate Amino Transferase 32 U/L (15-37); Bilirubin,Total 0.5 mg/dL (0.00-1.00); Blood Urea Nitrogen 32 mg/dL (7-18); Calcium 9.8 mg/dL (8.5-10.1); Carbon Dioxide 37 mmol/L (21-32); Chloride 94 mmol/L (98-108); Estimated CRCL calculation 44 ml/min; Estimated Glomerular Filt Rate 40; Glucose 94 mg/dL (70-99); Osmolality Calculated 286 mOsm/kg (285-295); Potassium 3.4 mmol/L (3.5-5.1); Sodium 135 mmol/L (136-145); Total Protein 7.4 g/dL (6.4-8.2)
[2020-02-17 07:20] VITALS: BP 131/83; PULSE 93; RESP 20; TEMP 36.8; O2SAT 95
[2020-02-17] MEDS: ASPIRIN 81 MG CHEWABLE TABLET 324 MG PO (08:19)
[2020-02-17] MEDS: POTASSIUM CHLORIDE 20 MEQ PACKET (FOR LIQUID) 40 MEQ PO ×2 (08:19→09:21)
--- NOTE | 2020-02-17 08:43 | PC.NURSE ---
Heart rate noted up to 140-160, upon entering room, standing at sink brushing teeth, states no pain and no sob
[2020-02-17] MEDS: VALSARTAN 80 MG TABLET 320 MG PO (09:13)
[2020-02-17 09:14] VITALS: PULSE 91
[2020-02-17] MEDS: TIZANIDINE HCL 2 MG TABLET 4 MG PO (09:14)
[2020-02-17] MEDS: METOPROLOL SUCCINATE EXT REL 50 MG TABCR PO (09:14)
[2020-02-17] MEDS: MULTIVITAMINS THERAPEUTIC TAB (*BKC) 1 TABLET PO (09:14)
[2020-02-17] MEDS: ATORVASTATIN 10 MG TABLET 20 MG PO (09:15)
[2020-02-17] MEDS: ASCORBIC ACID 500 MG TABLET PO (09:15)
[2020-02-17] MEDS: CLOPIDOGREL BISULFATE 75 MG TABLET PO (09:15)
[2020-02-17] MEDS: PANTOPRAZOLE 40 MG TABLET PO (09:15)
[2020-02-17] MEDS: DOCUSATE SODIUM 100 MG CAPSULE PO (09:15)
[2020-02-17] MEDS: FLUTICASONE PROPIONATE 0.05% NA SPR 16 GM BTL (*BKC) 2 SPRAY NASAL (09:17)
[2020-02-17] MEDS: MONTELUKAST SODIUM 10 MG TABLET PO (09:17)
--- NOTE | 2020-02-17 09:57 | P.DS_ITS ---
DS: Admitting Diagnosis Admitting Diagnosis Admitting Diagnosis: Dorsalgia, unspecified DS: Discharge Diagnosis Discharge Diagnosis (1) Chronic back pain: Code(s): M54.9 - Dorsalgia, unspecified; G89.29 - Other chronic pain Status: Acute Assessment and Plan: * PATIENT WITH CHRONIC BACK PAIN, FOLLOWED BY PAIN MANAGEMENT * FOR NOW WE WILL CONTINUE PERCOCET * patient instructed to take laxatives/stool softeners to prevent constipation due to narcotics use (2) Depression with anxiety: Code(s): F41.8 - Other specified anxiety disorders Status: Acute Assessment and Plan: * PATIENT NOTED THAT SHE HAS NOT TAKING CYMBALTA FOR QUITE SOME TIME NOW AND IT CAUSED TO have nausea and vomiting in THE PAST . I will DISCONTINUE USE (3) Chronic constipation: Code(s): K59.09 - Other constipation Status: Acute Assessment and Plan: * POSSIBLY SECONDARY TO CHRONIC NARCOTIC USE * IMAGING INDICATED Bowel gas pattern is nonobstructive. Moderate colonic fecal loading. * PATIENT HAD LARGE BOWEL MOVEMENT WITH THE USE OF MAG CITRATE * HER LINZESS will be restarted on discharge (4) Hyperlipidemia: Code(s): E78.5 - Hyperlipidemia, unspecified Status: Acute Assessment and Plan: * CONTINUE STATINS (5) Hypertension: Code(s): I10 - Essential (primary) hypertension Status: Acute Assessment and Plan: * stable * contniue VALSARTAN AND METOPROLOL * patient will discontinue the use of hydrochlorothiazide and torsemide on discharge due to her hypokalemia she will start spironolactone instead * (6) Dehydration: Code(s): E86.0 - Dehydration Status: Acute Assessment and Plan: * resolved * SECONDARY TO NAUSEA/ VOMITING * EVIDENCE OF AND BALANCE ELECTROLYTES, FATIGUE. patient electrolytes improving * patient educated on proper hydration (7) Acute hyponatremia: Code(s): E87.1 - Hypo-osmolality and hyponatremia Status: Acute Assessment and Plan: * resolved * SECONDARY TO DEHYDRATION (8) Hypokalemia: Code(s): E87.6 - Hypokalemia Status: Acute Assessment and Plan: * POSSIBLY SECONDARY TO ACUTE KIDNEY INJURY VERSUS USE OF DIURETICS * PATIENT'S POTASSIUM LEVEL AT 2.5 on admission currently 3.4 * patient given 40 mEq today * continue supplements daily for 2 days * patient has a repeat potassium and 3 days and then again in 1 week (9) Acute kidney injury: Code(s): N17.9 - Acute kidney failure, unspecified Status: Acute Assessment and Plan: * resolved * POSSIBLY SECONDARY TO DEHYDRATION VERSUS MEDICATION SUCH DIURETICS * EVIDENCE BY ELEVATED CREATININE 4.08, creatinine level improving today 1.33 * BASELINE CREATININE APPEARS TO BE 0.92 BASED OFF LABS FOR 01/14/2020 * CK elevated 396 currently to 81 * RENAL ULTRASOUND indicates normal kidney with out hydro nephrosis * repeat renal function in 3 days and again in 1 week (10) SVT (supraventricular tachycardia): Code(s): I47.1 - Supraventricular tachycardia Status: Acute Assessment and Plan: * spoke with Dr. Guadarrama's casing man's office. patient will discharge home with a event monitor. * torsemide and hydrochlorothiazide will be DC'ed * patient will discharge on spironolactone * will repeat potassium in 3days and sent to patient's primary care physician DS: Summary Hospital Course Hospital Course: Jessica was admitted on 02/16/20 s
--- NOTE | 2020-02-17 09:57 | PM.DS ---
DS: Admitting Diagnosis Admitting Diagnosis Admitting Diagnosis: Dorsalgia, unspecified DS: Discharge Diagnosis Discharge Diagnosis (1) Chronic back pain: Code(s): M54.9 - Dorsalgia, unspecified; G89.29 - Other chronic pain Status: Acute Assessment and Plan: PATIENT WITH CHRONIC BACK PAIN, FOLLOWED BY PAIN MANAGEMENT FOR NOW WE WILL CONTINUE PERCOCET patient instructed to take laxatives/stool softeners to prevent constipation due to narcotics use (2) Depression with anxiety: Code(s): F41.8 - Other specified anxiety disorders Status: Acute Assessment and Plan: PATIENT NOTED THAT SHE HAS NOT TAKING CYMBALTA FOR QUITE SOME TIME NOW AND IT CAUSED TO have nausea and vomiting in THE PAST . I will DISCONTINUE USE (3) Chronic constipation: Code(s): K59.09 - Other constipation Status: Acute Assessment and Plan: POSSIBLY SECONDARY TO CHRONIC NARCOTIC USE IMAGING INDICATED Bowel gas pattern is nonobstructive. Moderate colonic fecal loading. PATIENT HAD LARGE BOWEL MOVEMENT WITH THE USE OF MAG CITRATE HER LINZESS will be restarted on discharge (4) Hyperlipidemia: Code(s): E78.5 - Hyperlipidemia, unspecified Status: Acute Assessment and Plan: CONTINUE STATINS (5) Hypertension: Code(s): I10 - Essential (primary) hypertension Status: Acute Assessment and Plan: stable contniue VALSARTAN AND METOPROLOL patient will discontinue the use of hydrochlorothiazide and torsemide on discharge due to her hypokalemia she will start spironolactone instead (6) Dehydration: Code(s): E86.0 - Dehydration Status: Acute Assessment and Plan: resolved SECONDARY TO NAUSEA/ VOMITING EVIDENCE OF AND BALANCE ELECTROLYTES, FATIGUE. patient electrolytes improving patient educated on proper hydration (7) Acute hyponatremia: Code(s): E87.1 - Hypo-osmolality and hyponatremia Status: Acute Assessment and Plan: resolved SECONDARY TO DEHYDRATION (8) Hypokalemia: Code(s): E87.6 - Hypokalemia Status: Acute Assessment and Plan: POSSIBLY SECONDARY TO ACUTE KIDNEY INJURY VERSUS USE OF DIURETICS PATIENT'S POTASSIUM LEVEL AT 2.5 on admission currently 3.4 patient given 40 mEq today continue supplements daily for 2 days patient has a repeat potassium and 3 days and then again in 1 week (9) Acute kidney injury: Code(s): N17.9 - Acute kidney failure, unspecified Status: Acute Assessment and Plan: resolved POSSIBLY SECONDARY TO DEHYDRATION VERSUS MEDICATION SUCH DIURETICS EVIDENCE BY ELEVATED CREATININE 4.08, creatinine level improving today 1.33 BASELINE CREATININE APPEARS TO BE 0.92 BASED OFF LABS FOR 01/14/2020 CK elevated 396 currently to 81 RENAL ULTRASOUND indicates normal kidney with out hydro nephrosis repeat renal function in 3 days and again in 1 week (10) SVT (supraventricular tachycardia): Code(s): I47.1 - Supraventricular tachycardia Status: Acute Assessment and Plan: spoke with Dr. Guadarrama's desk clerks supervisor's office. patient will discharge home with a event monitor. torsemide and hydrochlorothiazide will be DC'ed patient will discharge on spironolactone will repeat potassium in 3days and sent to patient's primary care physician DS: Summary Hospital Course Hospital Course: Jessica was admitted on 02/16/20 she presented to the ED with complaints of nausea and vomiting. according to patient she has experienced extensive heartburn for quite some time now. Her primary care physician Dr. Conley has worked with patient to resolve her heartburn. She decided to come to the ED due to excessive nausea and vomiting. She was admitted for dehydration, hypokalemia and acute kidney injury. during this stay patient was treated with IV fluid, replacement supplements and
--- NOTE | 2020-02-17 09:59 | PC.NURSE ---
Up independent in room, telemetry SR- ST 80-110
--- NOTE | 2020-02-17 11:30 | PC.NURSE ---
Discharged with personal items via wheel chair to home, no questions upon discharge, reviewed event monitor and follow up apponitment and medications changes
--- NOTE | 2020-02-21 18:01 | PC.NURSE ---
Discharge call back Spoke with patient. States shes doing fine. Zofran and reglan are helping her stomach. Goes for an upper GI scope and ultrasound tomorrow. Followed up with Dr. Hansen already. Patient is on a monitoring analyst and asking about having to change it. Instructed patient to call cardioplum tomorrow and that as long the the monitor sticker was on secure it can wait until tomorrow. Patient states she understands all discharge instructions and her experience here at the hospital was wonderful.
--- NOTE | 2020-03-21 08:44 | WPDHOLTEREM ---
Holter/Event Monitor Holter/Event Monitor Date of procedure: 03/21/20 Procedure Type: 30 day event monitor Indications: SVT Conclusion: 1. 32 days event monitor between 02/17/20-03/19/20. There are 44 available transmissions for analysis. 2. Predominant rhythm is sinus rhythm. HR range 50-173 bpm; average HR 77 bpm. 3. There are occasional premature supraventricular complexes with total burden <1%. One episode of supraventricular tachycardia at 173 bpm lasting 15 beats on 02/21/20 at 21:37. One episode of atrial tachycardia with ventricular response at 95 bpm on 03/14/20 at 22:03. 4. There are occasional premature ventricular complexes with total burden <1%. No ventricular tachycardia. 5. No significant pauses greater than 2 seconds. 6. Patient reports 2 episodes of symptoms of symptoms other than listed which demonstrate sinus rhythm at 98-115 bpm and a PVC.
== END 2020-02-17 11:30 | disposition home or self-care (01) | DRG 309 ==
LOC: CHSED 12:45 → CHS2ND 13:01
PROVIDERS: Family Medicine; Nurse Practitioner; Admitting Provider Emergency Medicine; Emergency Provider Emergency Medicine; PCP Internal Medicine; Visit Provider Emergency Medicine
DX: I47.1 Supraventricular tachycardia (principal); E87.1 Hypo-osmolality and hyponatremia; N17.9 Acute kidney failure, unspecified; E86.0 Dehydration; E87.6 Hypokalemia; M54.9 Dorsalgia, unspecified; G89.29 Other chronic pain; K59.09 Other constipation; E78.5 Hyperlipidemia, unspecified; I10 Essential (primary) hypertension; R12 Heartburn; G43.909 Migraine, unspecified, not intractable, without status migrainosus; F32.9 Major depressive disorder, single episode, unspecified; F41.9 Anxiety disorder, unspecified
CPT/HCPCS: 36415; 74018; 76775; 80048; 80053; 81003; 82150; 82550; 83690; 83735; 84132; 84443; 84484; 85025; 85027; 86140; 93005; 93270; 96361; 96365; 96366; 96372; 96374; 96375; 96376; 99284; 99285; A9270; G0378; J1200; J1650; J2405; J2765; J3480; J7030; J7040

== ENCOUNTER 2020-05-05 13:45 | Outpatient (CLI) | payer MEDICARE, OTHER, SELFPAY ==
--- NOTE | 2020-05-10 14:51 | SLEEP_ITS ---
Home Sleep Study DATE OF STUDY: 05/05/2020 REASON FOR THIS STUDY: Obstructive sleep apnea, insomnia. HISTORY: This patient is a 64-year-old female, 5 feet 5 inches tall, 203 pounds with a body mass index of 33.7. She did not fill out the sleep survey, so her sleep concerns are not clear. There is no sleep schedule or sleep complaints. Dr. Mckenzie's note indicate that the patient has a history of chronic insomnia and uses nortriptyline 25 mg one at night to initiate sleep. CURRENT MEDICATIONS: The patient's current medication list: 1. Multivitamin 1 daily. 2. Nasal saline. 3. Plavix 75 mg a day. 4. Vitamin C. 5. Diclofenac topical gel 4 times a day. 6. Lidocaine 5% topically 1-4 times a day. 7. Flonase Allergy Relief 2 sprays each nostril daily. 8. Tizanidine 4 mg a day. 9. Atorvastatin 20 mg a day. 10. Metoprolol 75 mg twice a day. 11. Linzess 145 mcg daily. 12. Pantoprazole 40 mg a day. 13. Montelukast 10 mg a day. 14. Ventolin HFA 90 mcg daily. 15. Oxycodone/acetaminophen 10/325 mg q.4 hours p.r.n. pain. 16. Spironolactone 25 mg a day. 17. Reglan 10 mg q.6 hours p.r.n. 18. Docusate 100 mg daily. 19. Irbesartan 300 mg daily. DESCRIPTION OF THE STUDY: The patient did not fill out an [place] Sleepiness Scale score. This was conducted as a portable unattended type 3 home sleep test using 4 channel monitoring including respiratory effort channel, snoring channel, oxygen saturation channel, and heart rate channel. Duration was 8 hours 23 minutes. The apnea-hypopnea index is 15.1. Oxygen desaturation index 12.3. Lowest desaturation is 60% and the baseline saturation is 89%. The patient had 31 apneas, 84% of these or 26 were obstructive, 13% or 4 were central, 3% or 1 was mixed and there were 96 hypopneas. She had 1391 snoring events and 103 desaturations spending 171 minutes, 34% of the study below 88% saturation. Heart rate ranged from 57 to 121. IMPRESSION: 1. This home sleep test shows evidence of at least moderate obstructive sleep apnea syndrome G47.33 with an AHI of 15.1. The majority of the events are obstructive apneas with desaturation, which is profound to 60% and 171 minutes or 34% of the study spent below 88% saturation. This patient qualifies for treatment with auto PAP with pressures recommended between 5 and 20 cm a heated humidifier and an appropriate interface. She should be monitored for response to therapy and improvement in symptoms. 2. Elevated body mass index 33.7. The patient should be encouraged to strive to achieve ideal body mass index. 3. Medical comorbidities suggested by the medication list include hypertension, obstructive lung disease, hyperlipidemia, chronic pain. 4. Close clinical followup is recommended. It is recommended the patient complete the sleep questionnaire to better address her sleep problems and follow response to therapy. BRAD STEINER M.D. SURVEY ANALYST SURVEY ANALYST D I MT: Neptali
== END 2020-05-05 13:46 ==
LOC: ANHCSM 05-23 13:46
PROVIDERS: PCP Internal Medicine; Visit Provider Internal Medicine
DX: G47.33 Obstructive sleep apnea (adult) (pediatric) (principal); G47.00 Insomnia, unspecified; Z68.33 Body mass index [BMI] 33.0-33.9, adult
CPT/HCPCS: 95806

== ENCOUNTER 2020-07-21 14:45 | Outpatient (CLI) | payer MEDICARE, SELFPAY ==
[2020-07-21 15:43] LABS: SARS-CoV-2 Ag Negative (Negative)
== END 2020-07-21 14:46 | disposition home or self-care (01) ==
LOC: CHSLAB 14:50
PROVIDERS: PCP Internal Medicine; Visit Provider Internal Medicine
DX: Z20.828 Contact with and (suspected) exposure to other viral communicable diseases (principal)
CPT/HCPCS: 87426

== ENCOUNTER 2021-07-20 09:52 | Outpatient (CLI) | payer MEDICARE, SELFPAY ==
[2021-07-20 11:41] LABS: Influenza A QL RT-PCR Negative (Negative); Influenza B QL RT-PCR Negative (Negative); SARS-CoV-2 RNA PCR Negative (Negative)
== END 2021-07-20 09:53 | disposition home or self-care (01) ==
PROVIDERS: PCP Internal Medicine; Visit Provider Internal Medicine
DX: J06.9 Acute upper respiratory infection, unspecified (principal); Z20.822 Contact with and (suspected) exposure to COVID-19
CPT/HCPCS: 87502; C9803; U0003; U0005

== ENCOUNTER 2022-03-15 10:43 | Outpatient (CLI) | payer MEDICARE, SELFPAY ==
[2022-03-15 12:13] LABS: Influenza A QL RT-PCR Negative (Negative); Influenza B QL RT-PCR Negative (Negative); SARS-CoV-2 RNA PCR Negative (Negative)
== END 2022-03-15 10:44 | disposition home or self-care (01) ==
LOC: CHSLAB 10:46
PROVIDERS: PCP Internal Medicine; Visit Provider Internal Medicine
DX: J06.9 Acute upper respiratory infection, unspecified (principal); Z20.822 Contact with and (suspected) exposure to COVID-19
CPT/HCPCS: 87502; C9803; U0003; U0005

== ENCOUNTER 2023-02-24 16:43 | Outpatient (CLI) | payer MEDICARE, OTHER, SELFPAY ==
[2023-02-24 17:42] LABS: SARS-CoV-2 RNA PCR Positive (Negative)
== END 2023-02-24 16:44 | disposition home or self-care (01) ==
LOC: CHSLAB 16:48
PROVIDERS: PCP Internal Medicine; Visit Provider Internal Medicine
DX: U07.1 COVID-19 (principal); J06.9 Acute upper respiratory infection, unspecified
CPT/HCPCS: 87635

== ENCOUNTER 2023-06-05 10:25 | Outpatient (CLI) | payer MEDICARE, SELFPAY ==
--- NOTE | ~2023-06-05 | MR_ITS ---
MRI of the brain Clinical History: Headache, TIA Technique: Axial and sagittal T1-weighted images were acquired. These were followed by axial T2-weigh kristan, diffusion weighted, gradient, and FLAIR images. Findings: There is no acute infarct, acute intracranial hemorrhage, or mass lesion identified. Focal signal abnormality in the left cerebellum is suggestive of prior focal hemorrhage or hemorrhagic stro ke. No other abnormal signal identified. Ventricles and subarachnoid spaces are unremarkable. Orbits are unremarkable. Paranasal sinuses and m astoid air cells are clear. Major intracranial flow voids are intact. Sagittal midline structures are intact. IMPRESSION: No acute abnormality. Signal abnormality in the left cerebellum is compatible with remote focal hemorrhage or small hemorrh agic stroke. Reviewed, dictated and finalized at location M. IMPRESSION: No acute abnormality. Signal abnormality in the left cerebellum is compatible with remote focal hemor rhage or small hemorrhagic stroke.
== END 2023-06-05 10:26 | disposition home or self-care (01) ==
LOC: CHSIMG 10:32
PROVIDERS: PCP Internal Medicine; Visit Provider Internal Medicine
DX: Z86.73 Personal history of transient ischemic attack (TIA), and cerebral infarction without residual deficits (principal); R51.9 Headache, unspecified; R90.89 Other abnormal findings on diagnostic imaging of central nervous system
CPT/HCPCS: 70551

== ENCOUNTER 2023-06-06 11:53 | Outpatient (CLI) | payer MEDICARE, SELFPAY ==
--- NOTE | ~2023-06-06 | US_ITS ---
EXAMINATION: US carotid duplex BI DATE: 06/06/2023 12:33 INDICATION: Transient ischemic attack. Left cerebellar infarct. TECHNIQUE: Grayscale, color Doppler, and pulsed Doppler images of the cervical carotid arteries were obtained. The degree of vessel stenosis is placed in one of the following categories: normal, <50%, 5 0-69%, >=70% but less than near-occlusion, near-occlusion, or total occlusion. Note that percent sten osis relative to normal distal artery lumen diameter is indirectly measured from velocity measurement s as described by Shaji, et al. Radiology 2003; [id number]. COMPARISON: None. FINDINGS: RIGHT: The right common carotid artery (CCA) peak systolic velocity (PSV) is 94 cm/s. The right internal car otid artery (ICA) PSV is 76 cm/s. The right ICA end-diastolic velocity (EDV) is 23 cm/s. The right IC A/CCA PSV ratio is 0.8. Grayscale and color Doppler images yield an estimate of <50% diameter reducti on from plaque in the ICA. There is antegrade flow in the right vertebral artery. LEFT: The left CCA PSV is 81 cm/s. The left ICA PSV is 86 cm/s. The left ICA EDV is 33 cm/s. The left ICA/C CA PSV ratio is 1.1. Grayscale and color Doppler images yield an estimate of <50% diameter reduction from plaque in the ICA. There is antegrade flow in the left vertebral artery. IMPRESSION: 1. <50% stenosis in the right internal carotid artery. 2. <50% stenosis in the left internal carotid artery. Reviewed, dictated and finalized at location E.
== END 2023-06-06 11:54 | disposition home or self-care (01) ==
LOC: CHSIMG 11:55
PROVIDERS: PCP Internal Medicine; Visit Provider Internal Medicine
DX: I65.23 Occlusion and stenosis of bilateral carotid arteries (principal); R51.9 Headache, unspecified; Z86.73 Personal history of transient ischemic attack (TIA), and cerebral infarction without residual deficits
CPT/HCPCS: 93880